=== PATIENT | male | born 1945 | race Caucasian/White ===

== ENCOUNTER 2024-10-10 08:33 | Inpatient (IN) | payer MEDICARE, BC, SELFPAY ==
[2024-10-10] VITALS (10 sets, daily range): BP systolic 80–131; BP diastolic 47–88; PULSE 67–93; RESP 14–92; TEMP 31.7–37.3; O2SAT 83–99
--- NOTE | 2024-10-10 09:33 | EKG_ITS ---
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
--- NOTE | 2024-10-10 09:33 | XR_ITS ---
Examination: AP chest single view Technique one AP portable upright chest single view Exam date and time: October 10, 2024 0959 hours Comparison September 17, 2024 INDICATIONS: Hypoxia sepsis today FINDINGS: Bilateral pneumonia, diffuse in the left lung Normal heart size Mild elevation left hemidiaphragm IMPRESSION: Bilateral pneumonia, right upper lobe and diffuse in the left
--- NOTE | 2024-10-10 09:34 | XR_ITS ---
Examination: CT brain head without contrast. 2-D sagittal coronal reconstructions Date and time of exam:October 10, 2024 0942 hours COMPARISON: September 17, 2024 INDICATIONS: Altered mental status today, altered mental status September 17, 2024 CTDI: vol (mGy):49.9 DLP: (mGycm):1124 Technique: Multiple CT axial sections of the brain have been obtained, 5 mm slice thickness. Contrast has not been administered. 2-D sagittal, coronal reconstructions have been obtained Low dose protocols were performed. One or more of the following dose reduction techniques were used; automated exposure control, adjustment of the mA and/or KV according to patient size, use of iterative reconstruction technique. Findings: Mild to moderate ventricular enlargement. Intra-axial or extra-axial hemorrhage density is not seen. No mass effect or midline shift Basal cisterns are not remarkable. Fourth ventricle is midline. Cranial vault intact. Impression: Negative for acute hemorrhage, mass effect or midline shift Advise clinical correlation and follow-up accordingly
[2024-10-10] MEDS: SODIUM CHLORIDE 0.9% 1000 ML 1,000 ML 999 ML IV ×2 (10:09→11:27)
--- NOTE | 2024-10-10 10:09 | EDNOTE_ITS ---
Altered Mental Status RME/HPI General Chief Complaint: Altered Mental Status Stated Complaint: LOW O2 Time Seen by Provider: 10/10/24 09:23 Arrival date/time: 10/10/24 08:33 RME / HPI RME / HPI narrative: 79 year old male with history of CAD s/p stent placement, hypertension, hyperlipidemia, BPH, chronic indwelling rosario catheter presents to the ED BIB from [facility] for evaluation for change in mental status today. Per medics, [place] staff reported patient at baseline is bed bound, nonverbal, and typically able to answer questions by nodding yes/no. However, noted decreased responsiveness and low oxygen saturations today. Patient was recently treated for a UTI. Related Data Home Medications ?Medication ?Instructions ?Recorded ?Confirmed atorvastatin 40 mg tablet (Lipitor) 40 mg PO HS #0 tabs 12/06/14 09/18/24 coenzyme Q10 100 mg capsule 100 mg PO HS 03/11/18 09/18/24 (CoQ-10) doxazosin 4 mg tablet 4 mg PO HS 03/11/18 09/18/24 finasteride 5 mg tablet 5 mg PO QDAY 03/11/18 09/18/24 furosemide 40 mg tablet 40 mg PO QDAY 03/11/18 09/18/24 magnesium 200 mg tablet 200 mg PO QDAY 06/30/20 09/18/24 ascorbic acid (vitamin C) 500 mg 500 mg PO BID 02/01/24 09/18/24 tablet multivitamin 1 tab PO QDAY 02/01/24 09/18/24 bisacodyl 10 mg rectal suppository 10 mg MS Q72H PRN Constipation 08/23/24 09/18/24 (Dulcolax (bisacodyl)) magnesium hydroxide 400 mg/5 mL 30 ml PO Q72H PRN Constipation 08/23/24 09/18/24 oral suspension (Milk of Magnesia) sodium phosphates 19 gram-7 118 ml MS Q72H PRN Constipation 08/23/24 09/18/24 gram/118 mL enema (Fleet Enema) potassium chloride 8 mEq 8 meq PO BID 09/18/24 09/18/24 tablet,extended release Previous Rx's ?Medication ?Instructions ?Recorded aspirin 81 mg tablet,delayed 81 mg PO QDAY #30 tabs 08/25/24 release Allergies Allergy/AdvReac Type Severity Reaction Status Date / Time No Known Allergies Allergy Verified 09/17/24 08:27 Review of Systems Review of Systems ROS Unobtainable: unobtainable due to mental status Past Medical History Past Medical History NEUROLOGIC: Positive Dementia CARDIAC: Positive Cardiac Disorders, Coronary Artery Disease, Hypercholesterolemia, Congestive Heart Failure and Hypertension RESPIRATORY: Positive Pneumonia GASTROINTESTINAL: Positive Gastrointestinal Disorders, Gastrointestinal Bleed, Diverticulosis, Ulcer and Hiatal Hernia GENITOURINARY: Positive Genitourinary Disorders, Renal Disease and Prostate Cancer MUSCULOSKELETAL: Positive Musculoskeletal Disorders and Arthritis ENT: Positive Glaucoma OTHER HISTORY: Positive Hospitalization, Shingles, Falls, Cancer and Prostate Cancer Family History FAMILY HISTORY: Positive Family Cardiac Disorders Surgical History SURGICAL: Positive Cardiac Surgery (stent placement), Coronary Stent and Tonsillectomy Social History SMOKING STATUS: Former smoker SUBSTANCE USE: does not use ED Exam Narrative Physical exam: GENERAL APPEARANCE: Awake, does not respond to questions, gastric contents staining the left side of mouth HEENT: NC, AT. MMM. EOMI, clear conjunctiva, oropharynx clear. NECK: Supple without lymphadenopathy. No stiffness or restricted ROM. HEART: Normal rate and regular rhythm, normal S1/S1, no m/r/g LUNGS: CTAB, moving air well. No crackles or wheezes are heard. ABDOMEN: Soft, nontender, nondistended with good bowel sounds heard. : Rosario catheter with clear brown urine BACK: No midline C/T/L spine pain or deformity, No CVAT, no obvious deformity. EXTREMITIES: Without cyanosis, clubbing or edema. NEUROLOGICAL: Awake, does not respond to questions, exam limited Skin: Warm and dry without any rash. Course Course Course Narrative: chest xray ordered to help determine etiology of hypoxia. Quality Measures Current suspected stage: sepsis Possible source: pulmonary Blood cultures ordered: completed in ED Antibiotic ordered: Yes Pertinent labs: 10/10/24 10:38 Lactic Acid 0.8 mMol/L (0.4-2.0) Procalcitonin 0.15 ng/ml (0.0-0.49) sepsis Orders Category Date Time Status Aspiration precautions ONCE Care 10/10/24 09:31 Active Bedside Blood Glucose NOW Care 10/10/24 09:57 Active Bedside COVID-19 Antigen Test NOW Care 10/10/24 10:10 Active Bedside Influenza A&B Antigen Test NOW Care 10/10/24 10:10 Completed EKG (ED ONLY) *Do not use* NOW Care 10/10/24 09:[address] head/brain wo con Stat Exams 10/10/24 09:34 Completed EKG (ED Only) Stat Exams 10/10/24 09:33 Ordered XR chest 1V Stat Exams 10/10/24 09:33 Completed Blood Culture (Lab) Stat Lab 10/10/24 10:38 Received CBC Stat Lab 10/10/24 10:38 Completed CMP [Comprehensive Metabolic Panel] Stat Lab 10/10/24 10:38 Completed Lactate (Lactic Acid) Stat Lab 10/10/24 10:38 Completed Procalcitonin Stat Lab 10/10/24 10:38 Completed RSV [Respiratory Syncytial Virus Ag] Stat Lab 10/10/24 10:05 Completed Troponin I Stat Lab 10/10/24 10:38 Completed Azithromycin Inj [Zithromax Inj] 500 mg Med 10/10/24 10:09 Discontinued Sodium Chloride 0.9% 250 ml [Ns] 250 ml IV X1 Sodium Chloride 0.9% 1000 ml [Ns] 1,000 ml Med 10/10/24 09:31 Discontinued IV 999 mls/hr Sodium Chloride 0.9% 1000 ml [Ns] 1,000 ml Med 10/10/24 10:50 Discontinued IV 999 mls/hr cefTRIAXone/D5w 1gm IV premix [Rocephin/D5w 1gm IV Med 10/10/24 10:09 Discontinued premix] 50 ml IV X1 Vital Signs Vital signs: Vital Signs Pulse Rate 67 10/10/24 08:54 Respiratory Rate 18 10/10/24 08:54 Blood Pressure 131/88 H 10/10/24 08:54 Pulse Oximetry (%) 87 L 10/10/24 08:54 Oxygen Delivery Method Room Air 10/10/24 08:54 Pulse ox is 87% on room air which is hypoxic. Pulse ox is 96% on 4L nasal cannula which is adequate. Altered Mental Status MDM Narrative MDM Narrative:: Mr. Daugherty present with hypoxia on vital signs, hypothermia, and altered mental status concerning for sepsis due to pneumonia possibly community-acquired, viral, or aspiration. Patient has a very poor baseline, bedbound, answers yes/no questions. At this point he is able to look at you, but does not answer questions, appears quite somnolent, there is vomitus stain over the left side of his lip. Patient has a POLST on arrival that his full code full treatment therefore he was initiated aggressive IV fluid resuscitation, warmers, and full workup for sepsis. Chest x-ray was significant for a multi lobar pneumonia, antibiotics were initiated immediately upon identifying the source. Patient was already on ciprofloxacin for a UTI , however he has a chronic indwelling Rosario catheter and there is a possibility he is chronically colonized. Today our service I feel is more than pneumonia. He will require admission as he is not also hypoxic, altered. Head CT was done for his altered mental status which shows no acute findings. Laboratory testing was overall unremarkable and surprisingly his white blood cell count, lactic acid, and procalcitonin were normal. Regardless from the clinical standpoint given his hypoxia, endorgan issues there, and also endorgan issues with his mental status changes, he still qualifies for severe sepsis treatment. IAisha, am scribing for and in the presence of Dr. Farah. Patient data External records reviewed:: [facility] previous records (I reviewed admission from 09/17/2024 through 09/21/2024 for UTI ), EMS form and Penitentiary records (I reviewed txfer ppw from [facility], including pmhx and medication list ) Clinical information provided by:: EMS Social determinants that could affect healthcare access:: housing (SNF resident ) Patient has the following chronic illnesses:: CAD s/p stent placement, hypertension, hyperlipidemia, BPH Recently treated for UTI How is presenting disease/condition affected by chronic disease/condition?: exacerbated by Evaluation data The following diagnostics were reviewed and interpreted by me:: lab results and radiology exam(s) (CXR my interpretation, bilateral pneumonia greatest in the left upper, left lower, and right upper lobes. ) Lab and/or radiology exams considered but not ordered:: None Interpretation Summary: Accession Number(s): [id number] Examination: AP chest single view Technique one AP portable upright chest single view Exam date and time: October 10, 2024 0959 hours Comparison September 17, 2024 INDICATIONS: Hypoxia sepsis today FINDINGS: Bilateral pneumonia, diffuse in the left lung Normal heart size Mild elevation left hemidiaphragm IMPRESSION: Bilateral pneumonia, right upper lobe and diffuse in the left Dictated By:Marty Awan MD Signed By:<Electronically signed by Marty Awan MD in [place]>10/10/24 101 Accession Number(s): [id number] Examination: CT brain head without contrast. 2-D sagittal coronal reconstructions Date and time of exam: October 10, 2024 0942 hours COMPARISON: September 17, 2024 INDICATIONS: Altered mental status today, altered mental status September 17, 2024 Technique: Multiple CT axial sections of the brain have been obtained, 5 mm slice thickness. Contrast has not been administered. 2-D sagittal, coronal reconstructions have been obtained Low dose protocols were performed. One or more of the following dose reduction techniques were used; automated exposure control, adjustment of the mA and/or KV according to patient size, use of iterative reconstruction technique. Findings: Mild to moderate ventricular enlargement. Intra-axial or extra-axial hemorrhage density is not seen. No mass effect or midline shift Basal cisterns are not remarkable. Fourth ventricle is midline. Cranial vault intact. Impression: Negative for acute hemorrhage, mass effect or midline shift Advise clinical correlation and follow-up accordingly Dictated By:Marty Awan MD Signed By:<Electronically signed by Marty Awan MD in [place]>10/10/24 1021 Medications / Prescriptions Medications or Prescriptions considered but not ordered:: None Medication administrations:: Medication Administration History Acetaminophen (Acetaminophen 325 Mg Tablet) 650 mg PO Q6HR PRN PRN Reason: FEVER >101 Stop: 11/09/24 12:15 Diphenhydramine HCl (Diphenhydramine Inj 50 Mg/Ml Vial) 25 mg IVP Q6HR PRN PRN Reason: ITCHING Stop: 11/09/24 12:15 Morphine Sulfate 100 mg/ (Sodium Chloride) 100 mls @ 1 mls/hr IV .Q24H PRN; Protocol PRN Reason: PAIN (COMFORT CARE) Stop: 11/09/24 13:22 Last Admin: 10/10/24 14:04 Dose: 1 mg/hr, 1 mls/hr Documented By: VG Co-signed By: ANTHONY Lorazepam (Lorazepam 2 Mg/Ml Vial) 1 mg IVP Q6HR PRN PRN Reason: ANXIETY Stop: 10/15/24 12:15 Morphine Sulfate (Morphine Sulf Inj 10 Mg/Ml Vial) 2 mg IVP Q30M PRN PRN Reason: COMFORT CARE Stop: 10/16/24 01:51 Ondansetron HCl (Ondansetron Odt 4 Mg Tabrap) 4 mg PO Q6HR PRN PRN Reason: NAUSEA OR VOMITING Stop: 11/09/24 12:19 Scopolamine (Scopolamine 1 Mg Tdsy) 1 mg TOP Q3D ANNA MARIE Stop: 11/09/24 12:29 Last Admin: 10/10/24 13:18 Dose: 1 mg Documented By: ROXANA Sennosides (Senna Tablet) 2 tab PO HS ANNA MARIE Stop: 11/09/24 20:59 Last Admin: 10/10/24 20:31 Dose: Not Given Documented By: DENISSE Non-Admin Reason: pt NPO on comfort measures Discontinued Medications Sodium Chloride (Ns) 1,000 mls @ 999 mls/hr IV .Q1H1M ONE Stop: 10/10/24 10:31 Last Infusion: 10/10/24 11:22 Dose: Infused Documented By: Admin: 10/10/24 10:09 Dose: 999 mls/hr Documented By: VG Azithromycin 500 mg/ Sodium (Chloride) 250 mls @ 250 mls/hr IV X1 ONE Stop: 10/10/24 11:08 Last Infusion: 10/10/24 12:42 Dose: Infused Documented By: Admin: 10/10/24 11:28 Dose: 250 mls/hr Documented By: ROXANA Ceftriaxone Sodium/Dextrose (Rocephin/D5w 1gm Iv Premix) 50 mls @ 100 mls/hr IV X1 ONE Stop: 10/10/24 10:38 Last Infusion: 10/10/24 11:22 Dose: Infused Documented By: Admin: 10/10/24 10:31 Dose: 100 mls/hr Documented By: ROXANA Sodium Chloride (Ns) 1,000 mls @ 999 mls/hr IV .Q1H1M ONE Stop: 10/10/24 11:50 Last Infusion: 10/10/24 12:42 Dose: Infused Documented By: Admin: 10/10/24 11:27 Dose: 999 mls/hr Documented By: ROXANA Morphine Sulfate (Morphine Sulfate Iv Drip 100mg/100ml) 100 mls @ 1 mls/hr IV .Q24H PRN; Protocol PRN Reason: PAIN (COMFORT CARE) Stop: 10/15/24 12:15 Morphine Sulfate 100 mg/ (Sodium Chloride) 100 mls @ 1 mls/hr IV .Q24H PRN; Protocol PRN Reason: PAIN (COMFORT CARE) Stop: 11/09/24 12:15 Sodium Chloride (Ns) 1,000 mls @ 999 mls/hr IV .Q1H1M ONE Stop: 10/11/24 00:53 See above Consultations Consultation(s) initiated? (list below): Yes Consultation #1 (Physician, Specialty, Details): I spoke with resident Dr. Zamudio working with Dr. Medina regarding admission. Discussed patients PMHx, HPI, ED course, exam findings, labs, and radiology results. State they will come evaluate patient in the ED. Time: 11:55 Consultation #2 (Physician, Specialty, Details): Hospitalist Dr. Medina reports the patients POA is at bedside and has changed code status to DNR/DNI, comfort measures. They accept the patient for admission. Time: 12:15 Diagnosis Differential diagnosis altered mental status: altered mental status, sepsis and other (UTI ) Most likely diagnosis given after review of the tests above:: Pneumonia Sepsis Hypothermia Admission Indicated Admission indicated?: indicated Admission Request Was there a request for admission?: Yes Admission Attestation Admission request attestation: Discussed case with [] from Hospitalist service regarding admission. Discussed patients ED course, exam findings, labs, and radiology results. The Hospitalist [agrees,declines] to accept the patient for admission. Disposition Plan Disposition Plan: Admit Critical Care Time Critical Care Time Critical Care Time: Yes Total Critical Care Time (min.): 35 Attestation: The high probability of sudden, clinically significant deterioration in the patient's condition required the highest level of my preparedness to intervene urgently. The services I provided to this patient were to treat and/or prevent clinically significant deterioration. Services included the following: chart data review, reviewing nursing notes and/or old charts, documentation time, application security consultant collaboration regarding findings and treatment options, medication orders and management, direct patient care, vital sign assessments and ordering, interpreting and reviewing diagnostic studies and lab tests. Aggregate critical care time includes only time during which I was engaged in work directly related to the patient's care, as described above, whether at bedside or elsewhere in the Emergency Department. It did not include time spent performing other reported procedures or the services of residents, students, nurses or physician assistants. Discharge Plan Plan Patient Disposition: Admit Acute Care w/in Hospital Problem List Clinical Impression: Pneumonia, Sepsis, Hypothermia
[2024-10-10] MEDS: cefTRIAXone/D5w 1gm IV premix 50 ML IV (10:31)
[2024-10-10 10:47] LABS: Lactate (Lactic Acid) 0.8 mMol/L (0.4-2.0)
[2024-10-10 10:50] LABS: Basophils % (Auto) 0 % (0-2.5); Eosinophils % (Auto) 0 % (0-10); Hematocrit 32.2 % (41.0-53.0); Hemoglobin 10.6 g/dL (13.5-16.0); Immature Granulocytes % (Auto) 0 % (0-0); Immature Granulocytes Auto 0.02 Thou/mm3 (0.00-0.00); Lymphocytes # (Auto) 0.3 Thou/mm3 (1.0-4.8); Lymphocytes % (Auto) 3 % (10-50); Mean Corpuscular HGB Conc 32.9 g/dl (31.0-37.0); Mean Corpuscular Hemoglobin 30.2 pg (25.0-35.0); Mean Corpuscular Volume 92 fL (80-100); Monocytes # (Auto) 0.3 Thou/mm3 (0.0-0.8); Monocytes % (Auto) 3 % (0-12); Neutrophils % (Auto) 93 % (37-80); Nucleated Red Blood Cell # 0.02 Thou/mm3 (0.00-0.00); Nucleated Red Blood Cell % 0 /100 WBC (0); Platelet Count 86 Thou/mm3 (140-440); RDW Standard Deviation 70.8 fL (35.1-43.9); Red Blood Count 3.51 Miln/mm3 (4.50-5.90); White Blood Count 8.5 Thou/mm3 (3.8-10.6)
[2024-10-10 11:02] LABS: Respiratory Syncytial Virus Ag Negative (Negative)
[2024-10-10 11:18] LABS: Alanine Aminotransferase 57 U/L (10-49); Albumin, Serum 3.8 gm/dL (3.4-4.8); Albumin/Globulin Ratio 1.5 (1.2-2.2); Alkaline Phosphatase 168 U/L (46-116); Anion Gap 6 (7-16); Aspartate Amino Transferase 46 U/L (0-34); BUN/Creatinine Ratio 26 Ratio (12-20); Bilirubin,Total 1.1 mg/dL (0.3-1.2); Blood Urea Nitrogen 34 mg/dL (9-23); Calcium 9.9 mg/dL (8.3-10.6); Calcium (Corrected) 10.1 mg/dL (8.5-10.1); Carbon Dioxide 30.9 mMol/L (20.0-31.0); Chloride 107 mMol/L (98-107); Creatinine (Component) 1.3 mg/dL (0.6-1.3); Globulin 2.5 gm/dL (2.3-3.5); Glucose 124 mg/dL (74-106); Osmolality,Calculated 295 (275-295); Potassium 4.3 mMol/L (3.4-5.1); Procalcitonin 0.15 ng/ml (0.0-0.49); Sodium 144 mMol/L (136-145); Total Protein 6.3 gm/dL (5.7-8.2); Troponin I 0.037 ng/mL (0.0-0.045); eGFR 56 See Note
[2024-10-10] MEDS: AZITHROMYCIN INJ 500 MG in SODIUM CHLORIDE 0.9% 250 ML 250 ML 250 MG IV (11:28)
--- NOTE | 2024-10-10 12:15 | PC.NURSE ---
ADMITTING TEAM AT BEDSIDE. PER POA, DECISION TO CHANGE CODE STATUS TO DNR MADE. COMFORT MEASURES ONLY.
--- NOTE | 2024-10-10 13:10 | PC.NURSE ---
PHARMACY CALLED FOR MORPHINE DRIP, PHARM TO CALL BACK.
[2024-10-10] MEDS: SCOPOLAMINE 1 MG TDSY TOP (13:18)
--- NOTE | 2024-10-10 13:34 | ESHP_ITS ---
<Statement entered by Endy Sauceda MD - 10/10/24 16:18> Senior Resident Attestation: I supervised/discussed management plan with internal control specialist physician Dr. Hooks, and was involved in the care of this patient. I personally saw and examined the patient and discussed the assessment and plan with the entire medicine team, including my attending. I agree with the assessment and plan as documented. Patient is a 79 years old male with past medical history of dementia, CAD s/p stents, BPH, chronic indwelling catheter, esophageal ulcers, hypertension, and hyperlipidemia presented due to worsening AMS and hypothermia. Power of deputy county attorney at the bedside wants him to be on comfort care. He was admitted to medical floor and comfort measures were started with IV morphine drip. Patient's care was discussed with attending physician, Dr. Medina. Endy Sauceda MD PGY-2. Documentation for date of: 10/10/24 HPI History of Present Illness Chief complaint: low blood pressure and low temperature History of present illness: 79-year-old male with past medical history of vascular dementia, CAD s/p stents, BPH, chronic indwelling catheter, upper GI bleed secondary to esophageal ulcers, hypertension, and hyperlipidemia was admitted to the hospital on 10/10/2024 after coming to ER from [facility] due to altered mental status as well as low blood pressure and low temperature. ER physician stated that the patient's temperature was unmeasurable and had to get rectal temperature. Spoke with the patient's medical power of deputy county attorney who was at bedside and she stated that at baseline he is wheelchair-bound and very unresponsive. She mentioned that since Wednesday she was a lot more confused not knowing who she was and that this was not normal for him. She stated that the patient lately has been resp responsive and is mostly sleeping. Discussion was made with her about patient's current condition and multiple hospitalizations in the past few months and she decided to proceed with patient being DNR/DNI and no aggressive treatment at this time. She decided to go with comfort measures at this time and no aggressive treatment. ED course: Initially patient was hypothermic, hypoxic, and mildly hypertensive. Initial labs were relevant for normocytic normochromic anemia, thrombocytopenia, and transaminitis. Initial imaging included head CT which came back unremarkable and chest x-ray which showed bilateral pneumonia. ED physician started patient on warm IV fluids and bear hugger. PMH: As above Review of Systems Review of Systems ROS Unobtainable: unobtainable due to mental status Past Medical History Past Medical History NEUROLOGIC: Positive Dementia CARDIAC: Positive Cardiac Disorders, Coronary Artery Disease, Hypercholesterolemia, Congestive Heart Failure and Hypertension RESPIRATORY: Positive Pneumonia GASTROINTESTINAL: Positive Gastrointestinal Disorders, Gastrointestinal Bleed, Diverticulosis, Ulcer and Hiatal Hernia GENITOURINARY: Positive Genitourinary Disorders, Renal Disease and Prostate Cancer MUSCULOSKELETAL: Positive Musculoskeletal Disorders and Arthritis ENT: Positive Glaucoma OTHER HISTORY: Positive Hospitalization, Shingles, Falls, Cancer and Prostate Cancer Family History FAMILY HISTORY: Positive Family Cardiac Disorders Surgical History SURGICAL: Positive Cardiac Surgery (stent placement), Coronary Stent and Tonsillectomy Social History SMOKING STATUS: Former smoker SUBSTANCE USE: does not use Exam Vital Signs Temp Pulse Resp BP Pulse Ox O2 Del Method O2 Flow Rate 93.0 F L 81 20 111/67 94 L Oxy Mask 6 10/10/24 12:31 10/10/24 12:31 10/10/24 12:31 10/10/24 12:31 10/10/24 12:31 10/10/24 12:31 10/10/24 12:31 Narrative Exam General: Nonverbal and unresponsive, no apparent acute distress HEENT: Patient remained with his eyes shot closed, some vomit around mouth. Lungs: Bilateral crackles or rhonchi Cardio: Normal S1/S2, regular rhythm, no murmurs Abdomen: Soft no palpable masses Extremities: Symmetrical, no significant deformities, no peripheral edema, venous stasis changes bilateral Neuro: Cannot be assessed due to patient's current mental status and medical condition Results: Labs 10/10/24 10:38 10/10/24 10:38 Labs: Short CBC 10/10/24 Range/Units 10:38 WBC 8.5 (3.8-10.6) Thou/mm3 Hgb 10.6 L (13.5-16.0) g/dL Hct 32.2 L (41.0-53.0) % Plt Count 86 L D (140-440) Thou/mm3 BMP 10/10/24 10:38 Sodium 144 Potassium 4.3 Chloride 107 Carbon Dioxide 30.9 BUN 34 H Creatinine 1.3 Glucose 124 H Calcium 9.9 Cardiac Enzymes 10/10/24 Range/Units 10:38 Troponin I 0.037 (0.0-0.045) ng/mL Liver Function 10/10/24 Range/Units 10:38 Total Bilirubin 1.1 (0.3-1.2) mg/dL AST 46 H (0-34) U/L ALT 57 H (10-49) U/L Alkaline Phosphatase 168 H (46-116) U/L Albumin 3.8 (3.4-4.8) gm/dL Quality Measures Quality Measures sepsis Current suspected stage: ruled out (comfort care ) Possible source: pulmonary Blood cultures ordered: completed in ED Antibiotic ordered: No Advance care planning discussed with:: legal surragate Medications Home Medications and Allergies Home Medications ?Medication ?Instructions ?Recorded ?Confirmed ?Type atorvastatin 40 mg tablet (Lipitor) 40 mg PO HS #0 tabs 12/06/14 09/18/24 History coenzyme Q10 100 mg capsule 100 mg PO HS 03/11/18 09/18/24 History (CoQ-10) doxazosin 4 mg tablet 4 mg PO HS 03/11/18 09/18/24 History finasteride 5 mg tablet 5 mg PO QDAY 03/11/18 09/18/24 History furosemide 40 mg tablet 40 mg PO QDAY 03/11/18 09/18/24 History magnesium 200 mg tablet 200 mg PO QDAY 06/30/20 09/18/24 History ascorbic acid (vitamin C) 500 mg 500 mg PO BID 02/01/24 09/18/24 History tablet multivitamin 1 tab PO QDAY 02/01/24 09/18/24 History bisacodyl 10 mg rectal suppository 10 mg GA Q72H PRN Constipation 08/23/24 09/18/24 History (Dulcolax (bisacodyl)) magnesium hydroxide 400 mg/5 mL 30 ml PO Q72H PRN Constipation 08/23/24 09/18/24 History oral suspension (Milk of Magnesia) sodium phosphates 19 gram-7 118 ml GA Q72H PRN Constipation 08/23/24 09/18/24 History gram/118 mL enema (Fleet Enema) potassium chloride 8 mEq 8 meq PO BID 09/18/24 09/18/24 History tablet,extended release Allergies Allergy/AdvReac Type Severity Reaction Status Date / Time No Known Allergies Allergy Verified 09/17/24 08:27 Visit Medications Acetaminophen (Acetaminophen 325 Mg Tablet) 650 mg PO Q6HR PRN PRN Reason: FEVER >101 Stop: 11/09/24 12:15 Diphenhydramine HCl (Diphenhydramine Inj 50 Mg/Ml Vial) 25 mg IVP Q6HR PRN PRN Reason: ITCHING Stop: 11/09/24 12:15 Morphine Sulfate 100 mg/ (Sodium Chloride) 100 mls @ 1 mls/hr IV .Q24H PRN; Protocol PRN Reason: PAIN (COMFORT CARE) Stop: 11/09/24 13:22 Lorazepam (Lorazepam 2 Mg/Ml Vial) 1 mg IVP Q6HR PRN PRN Reason: ANXIETY Stop: 10/15/24 12:15 Ondansetron HCl (Ondansetron Odt 4 Mg Tabrap) 4 mg PO Q6HR PRN PRN Reason: NAUSEA OR VOMITING Stop: 11/09/24 12:19 Scopolamine (Scopolamine 1 Mg Tdsy) 1 mg TOP Q3D ANNA MARIE Stop: 11/09/24 12:29 Last Admin: 10/10/24 13:18 Dose: 1 mg Sennosides (Senna Tablet) 2 tab PO HS ANNA MARIE Stop: 11/09/24 20:59 Discontinued Medications Sodium Chloride (Ns) 1,000 mls @ 999 mls/hr IV .Q1H1M ONE Stop: 10/10/24 10:31 Last Infusion: 10/10/24 11:22 Dose: Infused Azithromycin 500 mg/ Sodium (Chloride) 250 mls @ 250 mls/hr IV X1 ONE Stop: 10/10/24 11:08 Last Infusion: 10/10/24 12:42 Dose: Infused Ceftriaxone Sodium/Dextrose (Rocephin/D5w 1gm Iv Premix) 50 mls @ 100 mls/hr IV X1 ONE Stop: 10/10/24 10:38 Last Infusion: 10/10/24 11:22 Dose: Infused Sodium Chloride (Ns) 1,000 mls @ 999 mls/hr IV .Q1H1M ONE Stop: 10/10/24 11:50 Last Infusion: 10/10/24 12:42 Dose: Infused Morphine Sulfate (Morphine Sulfate Iv Drip 100mg/100ml) 100 mls @ 1 mls/hr IV .Q24H PRN; Protocol PRN Reason: PAIN (COMFORT CARE) Stop: 10/15/24 12:15 Morphine Sulfate 100 mg/ (Sodium Chloride) 100 mls @ 1 mls/hr IV .Q24H PRN; Protocol PRN Reason: PAIN (COMFORT CARE) Stop: 11/09/24 12:15 Assessment & Plan Plan 79-year-old male with past medical history of vascular dementia, CAD s/p stents, BPH, chronic indwelling catheter, upper GI bleed secondary to esophageal ulcers, hypertension, and hyperlipidemia was admitted to the hospital on 10/10/2024 for hypothermia and Sepsis 2/2 CAP, on comfort measures. #Comfort care #Hypothermia #Community-acquired pneumonia #Normocytic normochromic anemia #Transaminitis #Hx of vascular dementia #Hx of chronic indwelling catheter #Hx of BPH #Hx of CAD s/p stents #Hx of upper GI bleed secondary to esophageal ulcers #Hx of hypertension #Hx of hyperlipidemia ? Patient medical power of deputy county attorney decided to proceed with comfort care at this time ? Patient is on nonrebreather mask Plan: ?Patient currently on comfort measures Disposition: Patient admitted to med surg on comfort care. Code: DNR/DNI Case disclosed with Attending Dr. Medina and My senior Dr. Sauceda PGY2. Blas Davila PGY1 Attending Provider Attestation/Addendum I, Corrie Medina, DO, attest that I was physically present for the rosales portions of the service and evaluated the patient with the resident and I reviewed and discussed the case with the resident and agree with the resident's findings and plans of care as documented above Patient is a 79-year-old male with past medical history of vascular dementia, CAD s/p stents, BPH, chronic indwelling catheter, upper GI bleed secondary to esophageal ulcers, hypertension, and hyperlipidemia who was brought to ED after he was found to be unresponsive and hypothermic at his SNF. Patient at baseline is only able to answer yes/no to questions. On presentation, patient was found to be hypoxic with saturation of 87% on 4L oxymask and hypothermic with T of 89.1. CXR shows diffuse b/l pneumonia. Patient was recently discharged on 09/21/24 after he was worked up for acute encephalopathy. POA at bedside stated that the patient has been gradually declining. Upon my evaluation, patient was unresponsive, with b/l rhonchi in both lungs. Patient did not withdraw from tactile or noxious stimuli. Per nursing, patient was noted to be bradycardic at 29, hypotensive and worsening hypoxia prior to my arrival, but vitals returned to HR of 75, BP 110/60s with O2 sat of 90% on 6L. Patient was noted to have gurgling from oropharyngeal secretions, no cough reflex. Suspect that patient has been aspirating. Patient was in barehugger with Temp improved to 93F. POA expressed that patient would not want any aggressive measures as she witnessed the bradycardic and hypotensive episode. She stated that she would like for the patient be placed on comfort measures. Explained to POA the procedure of comfort measures with which she expressed understanding and agreed to proceed with comfort measures here in the hospital. Will admit to med/surg for comfort measures.
[2024-10-11] VITALS: BP 71/39; PULSE 64; RESP 18; TEMP 36.4; O2SAT 96
--- NOTE | 2024-10-11 00:26 | PD.RESEVENT ---
Documentation for date of: 10/11/24 Event Note Event Note: Reason for Response: was called at 23:43 for Comfort care decision reversal Upon arrival, the patient was under comfort care, with the present at the bedside as the decision maker. At the time of the rapid response call, the decided to reverse the comfort care status and transition the patient to full treatment. Vital Signs on Arrival: Blood Pressure: 74/49 mmHg, MAP: 47 mmHg, Heart Rate: 63, Oxygen Saturation: 96%, Temperature: 97?F We reviewed the patient's hospital course, emphasizing the comfort care plan and prognosis. A discussion was held with the decision maker regarding the ongoing management and the potential risks and benefits of transitioning the patient to full treatment. It was explained that while reversing comfort care could potentially extend life, the patient would not suffer if comfort care was continued. The patient was on a morphine drip and appeared comfortable. The decision maker had several questions, all of which were answered to her satisfaction. She expressed that her primary concern was to ensure he did not suffer, and that she wanted him to remain comfortable and pain-free. After a thorough discussion of the options, including the risks and benefits of transitioning to full treatment versus continuing comfort care, She ultimately decided to continue with the comfort care plan and agreed with the current management. Patient care was discussed with attending physician Dr.Sette Madalyn Johnson MD PGY-2 I have carefully reviewed this document. Due to imperfections in the voice software, there could be grammatical errors including phonetic/typographic errors. This in no way compromises the medical care the patient is receiving
[2024-10-11 04:00] VITALS: BP 87/45; PULSE 57; RESP 13; TEMP 36.2; O2SAT 100
[2024-10-11 05:28] VITALS: BMI 27.3
[2024-10-11 07:31] VITALS: BP 91/44; PULSE 61; RESP 15; TEMP 36.2; O2SAT 100
--- NOTE | 2024-10-11 09:08 | PC.SS ---
Initial assessment: This is 79 year old male admitted for comfort measures. Patient not responsive at this time. Patient's POA, Deepika Cadena at bed side to provide information. Patient comes from [facility], has been there for the last six months per Deepika. Patient's friend, Deepika was identified as the patient's medical surrogate decision maker and POA. Patient is described to require assistance with ADL's. Patient transfer with wheelchair. Patient's facility PCP is Dr. Buddy Simpson. The discharge plan was discussed, and remains pending at this time. Discussed with Deepika about hospice services and provided her with brochures for further information. donor services technician to remain available to address further needs. D/c plan: pending Next of kin: Deepika Cadena
[2024-10-11 11:09] VITALS: BMI 27.2
[2024-10-11 11:52] VITALS: BP 100/48; PULSE 58; RESP 15; TEMP 36.2; O2SAT 91
[2024-10-11] MEDS: MORPHINE SULF INJ 10 MG/ML VIAL 2 MG IVP (14:31)
--- NOTE | 2024-10-11 15:38 | PC.SS ---
Rounding note: patient on comfort measures.
[2024-10-11 16:00] VITALS: BP 112/50; PULSE 66; RESP 15; TEMP 36.2; O2SAT 91
--- NOTE | 2024-10-11 17:41 | PD.RESPRO ---
Documentation for date of: 10/11/24 Subjective Subjective Interval history: 10/11: over night admit. Patient is admitted for comfort measures only currently patient is on morphine drip he is alert and oriented x 0. Patient appears comfortable. Patient is saturating on 3 L of oxygen via nasal cannula. Patient's friend Deepika who has the power of civil litigation attorney is at bedside. Deepika requested she should be contacted if the patient passes while she is not at his bedside. Her contact number is [phone]. Exam Vital Signs Temp Pulse Resp BP Pulse Ox O2 Del Method O2 Flow Rate 97.1 F 66 15 112/50 L 91 L Nasal Cannula 4 10/11/24 16:00 10/11/24 16:00 10/11/24 16:00 10/11/24 16:00 10/11/24 16:00 10/11/24 16:00 10/11/24 17:38 Narrative Exam GENERAL: A&Ox0 Not in acute distress, comfortable in bed on morphine drip NEURO: Unobtainable due to mental status HEENT: Atraumatic, Normocephalic. mucous membranes moist. Eyes closed HEART: Distant heart Sounds LUNGS: 3 L of oxygen via nasal cannula ABDOMEN: soft, non-distended SKIN: No notable skin lesions EXTREMITIES: No edema Objective Labs 10/10/24 10:38 10/10/24 10:38 Quality Measures Quality Measures sepsis Current suspected stage: sepsis Possible source: pulmonary Blood cultures ordered: completed in ED Antibiotic ordered: No Advance care planning discussed with:: legal surragate Assessment & Plan Assessment Current Active Medications: Generic Name Dose Route Start Last Admin Trade Name Freq PRN Reason Stop Dose Admin Acetaminophen 650 mg 10/10/24 12:16 Acetaminophen 325 Mg Tablet PO 11/09/24 12:15 Q6HR PRN FEVER >101 Diphenhydramine HCl 25 mg 10/10/24 12:16 Diphenhydramine Inj 50 Mg/Ml Vial IVP 11/09/24 12:15 Q6HR PRN ITCHING Morphine Sulfate 100 mg/ 100 mls @ 1 mls/hr 10/10/24 13:23 10/10/24 14:04 Sodium Chloride IV 11/09/24 13:22 1 mg/hr .Q24H PRN 1 mls/hr PAIN (COMFORT CARE) Administration Protocol 1 MG/HR Lorazepam 1 mg 10/10/24 12:16 Lorazepam 2 Mg/Ml Vial IVP 10/15/24 12:15 Q6HR PRN ANXIETY Morphine Sulfate 2 mg 10/11/24 01:52 10/11/24 14:31 Morphine Sulf Inj 10 Mg/Ml Vial IVP 10/16/24 01:51 2 mg Q30M PRN Administration COMFORT CARE Ondansetron HCl 4 mg 10/10/24 12:20 Ondansetron Odt 4 Mg Tabrap PO 11/09/24 12:19 Q6HR PRN NAUSEA OR VOMITING Scopolamine 1 mg 10/10/24 12:30 10/10/24 13:18 Scopolamine 1 Mg Tdsy TOP 11/09/24 12:29 1 mg Q3D ANNA MARIE Administration Sennosides 2 tab 10/10/24 21:00 10/10/24 20:31 Senna Tablet PO 11/09/24 20:59 Not Given HS ANNA MARIE Plan Mr. Daugherty is a 79-year-old male with past medical history of vascular dementia, CAD s/p stents, BPH, chronic indwelling catheter, upper GI bleed secondary to esophageal ulcers, hypertension, and hyperlipidemia was admitted to the hospital on 10/10/2024 for hypothermia and Sepsis 2/2 CAP, on comfort measures. #Comfort care #Hypothermia #Community-acquired pneumonia #Normocytic normochromic anemia #Transaminitis #Hx of vascular dementia #Hx of chronic indwelling catheter #Hx of BPH #Hx of CAD s/p stents #Hx of upper GI bleed secondary to esophageal ulcers #Hx of hypertension #Hx of hyperlipidemia ? Patient medical power of civil litigation attorney decided to proceed with comfort care at this time ? Patient is on nasal cannula Plan: ?Patient currently on comfort measures -Morphine drip started -2 to 3 L of oxygen via nasal cannula Disposition: Patient admitted to med surg on comfort care. Code: DNR/DNI Assessment and plan discussed with my attending physician Dr. Gato Plaza (PGY-1)- Internal medicine resident Attending Provider Attestation/Addendum Patient was seen and examined. He is on morphine drip. He is on comfort care. He was admitted for acute hypoxic respiratory failure secondary to community-acquired pneumonia. He has coronary artery disease, dementia, BPH, chronic indwelling catheter, hypertension, hyperlipidemia, GI bleed. Discussed with housestaff. Will try to get POLST form completed.
[2024-10-11 20:00] VITALS: BP 89/49; PULSE 85; RESP 20; TEMP 36.6; O2SAT 79
--- NOTE | 2024-10-12 03:17 | PD.DPN ---
Documentation for date of: 10/12/24 Pronouncement Note Date and Time of Date of : 10/12/24 Time of : 02:51 PCOD Preliminary cause of : Cardiopulmonary arrest Summary Additional details: I was called to patient's bedside to pronounce that Aiden Daugherty, 79-year-old male, has . No spontaneous movements present. No response to verbal or tactile stimuli. Pupils mid-dilated, fixed, and unresponsive to light. No breath sounds appreciated over either lung [place]. No heart sounds auscultated over entire precordium. Patient pronounced at 2:51 AM on 10/12/2024. Confirmed and witnessed by nurse. Family was notified and condolences were given. Additional Data Confirmation of : no pulse, no respirations, no heart sounds, pupils fixed and dilated and other (Corneal reflex absent.) Family: at bedside (Friend, also decision maker.) Additional persons at bedside: other (Registered nurse.) Attending/PCP notified?: Yes Attending physician: Garrison Hoskins MD Was code activated?: No (Comfort care.)
--- NOTE | 2024-10-12 03:33 | PC.NURSE ---
Wasted morphine drip 60mg with Aubrey MENDOZA in med room.
--- NOTE | 2024-10-12 03:33 | PC.NURSE ---
60ml morphine wasted with REJI Chawla in Med/surg [facility] medication room. 60ml Morphine was disposed in cactus.
--- NOTE | 2024-10-12 11:35 | PD.DDS ---
Documentation for date of: 10/12/24 Summary Date and Time Date of admission: 10/10/24 12:16 Summary Hospital Course: Mr. Daugherty is a 79-year-old male with past medical history of vascular dementia, CAD s/p stents, BPH, chronic indwelling catheter, upper GI bleed secondary to esophageal ulcers, hypertension, and hyperlipidemia was initially admitted to [facility] on 10/10/2024 after after brought to the ED from [facility] due to hypotension, hypothermia and altered mental status. In the ED patient was found to have normocytic anemia, thrombocytopenia and transaminitis. Initial imaging included head CT was unremarkable and chest x-ray showed bilateral pneumonia. In the ED the patient was given warm IV fluids and Maik hugger for therapeutic hypothermia. Patient's friend Deepika has the patient's medical power of workers compensation defense attorney who was at bedside and she stated that at baseline he is wheelchair-bound and very unresponsive. She mentioned that he is increasingly confused not knowing who she was. Discussion was made with her about patient's current condition and multiple hospitalizations in the past few months and she decided to proceed with patient being DNR/DNI and transition to comfort care only. The patient was admitted to the hospital with the goal of ensuring comfort without aggressive measures and without antibiotics. Patient was put on morphine drip and 3 L oxygen via nasal cannula. Overnight team reported patient passed peacefully at 2:51 AM on 10/12/2024. confirmed and witnessed by nurse in the room as well as patient's power of workers compensation defense attorney Deepika at bedside. Condolences were given. End-of-life care was provided with focus on symptoms management, pain control. The patient received morphine drip and oxygen via nasal cannula to ensure comfort. #Comfort care #Hypothermia #Community-acquired pneumonia #Normocytic normochromic anemia #Transaminitis #Hx of vascular dementia #Hx of chronic indwelling catheter #Hx of BPH #Hx of CAD s/p stents #Hx of upper GI bleed secondary to esophageal ulcers #Hx of hypertension #Hx of hyperlipidemia Assessment and plan discussed with my attending physician Dr. Gato Plaza (PGY-1)- Internal medicine resident Attending note: I discussed with and supervised the resident physician who took care of this patient. Additional Data Attending physician: Garrison Hoskins MD Visit Providers Provider Primary care physician: Physician No Primary/Family Consults: 10/10/24 12:20 Referral Hospice Routine Comment: Referral Registered Dietitian Routine Comment: Discharge Plan Plan Patient Disposition: Prescriptions/Referrals Referrals: No Primary/Family,Physician [Primary Care Provider] - Patient/Caregiver Discharge Instructions Print Language: Armenian Discharge Order Discharge Orders: Discharge (Routine); Ordered 10/12/24 Ordered By: Martinez Rosario
== END 2024-10-12 04:14 | disposition expired | DRG 871 ==
LOC: SERX 12:45 → SERHOLD 13:06 → S3NX 17:54
PROVIDERS: Admitting Provider Internal Medicine; Emergency Provider Emergency Medicine; Visit Provider Internal Medicine
DX: A41.9 Sepsis, unspecified organism (principal); J18.9 Pneumonia, unspecified organism; Z95.5 Presence of coronary angioplasty implant and graft; I25.10 Atherosclerotic heart disease of native coronary artery without angina pectoris; E78.5 Hyperlipidemia, unspecified; N40.0 Benign prostatic hyperplasia without lower urinary tract symptoms; I10 Essential (primary) hypertension; Z74.01 Bed confinement status; Z99.3 Dependence on wheelchair; Z66 Do not resuscitate; Z51.5 Encounter for palliative care; R68.0 Hypothermia, not associated with low environmental temperature; D64.9 Anemia, unspecified; F01.50 Vascular dementia, unspecified severity, without behavioral disturbance, psychotic disturbance, mood disturbance, and anxiety; I46.9 Cardiac arrest, cause unspecified
CPT/HCPCS: 36415; 70450; 71045; 80053; 83605; 84145; 84484; 85025; 87040; 87081; 87400; 87634; 87811; 93005; 96365; 96367; 99291; J0456; J0696; J2270; J7030; J7050; A9270